=== PATIENT | female | born 1955 | race Caucasian/White ===

== ENCOUNTER → 2018-06-07 | Outpatient (CLI) | payer OTHER, MEDICARE ==
--- NOTE | 2018-06-07 14:15 | Diagnostic Imaging Report ---
EXAM: Cervical spine at 12:50 p.m. INDICATION: Left neck pain TECHNIQUE: AP, lateral and odontoid views were obtained. COMPARISON: There are no prior cervical spine examinations available for comparison. FINDINGS: The lateral view does show straightening of the cervical spine. This may be secondary to muscle spasm and/or positioning. In addition, there is severe degenerative disc and bony disease at C6-7. There is near-complete obliteration of the disc space at this level and there is sclerosis of the opposing endplates of C6 and C7. There is also narrowing of the disc spaces at C4-5 and C5-6 and there is slight retrolisthesis of C5 with respect to C6, as well. There is no fracture or acute bony abnormality evident. However, there does appear to be block vertebra formation at C2-3 and C7-T1. This is an anomaly of segmentation. The AP view again shows the pronounced dextroscoliosis of the upper thoracic spine. In the interval since the prior study, the patient has undergone a surgical procedure and there are now numerous surgical clips in the soft tissues inferior to the thyroid cartilage. There also appears to be mild retropharyngeal edema anterior to C7 and T1. The tracheal air shadow is not compressed or deviated however. The apices are clear. IMPRESSION: 1. There is no evidence for an acute bony abnormality. 2. There is severe degenerative disc and bony disease at C6-7 and to a lesser degree at C4-5 and C5-6. If there is clinical concern regarding spinal stenosis or nerve root encroachment at these levels, MRI would be recommended for further study. 3. 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 Dictated by: Dictated on workstation # [id number]
== END ==
LOC: RAD 12:19
PROVIDERS: ATTEND Family Medicine
DX: M50.121 Cervical disc disorder at C4-C5 level with radiculopathy (principal); M89.9 Disorder of bone, unspecified; M41.84 Other forms of scoliosis, thoracic region; Q76.49 Other congenital malformations of spine, not associated with scoliosis
CPT/HCPCS: 72040

== ENCOUNTER → 2018-09-05 | Outpatient (CLI) | payer MEDICARE, OTHER ==
[~2018-09-05] VITALS: Ht 162.6 cm; Wt 85.7 kg
[~2018-09-05] MED LIST: ASP81CT PO; ATOR40TA70 PO; CEPH500C PO; CIME200T15 PO; CYCL10TA45 PO; EST1.25T PO; FAMO20TA5 PO; HCT25T PO; HCTZ12.5T PO; HYDR-3455 PO; KCL20TCR PO; LEVO100T7 PO; LORA10TA7 PO; LYSI500T13 PO; LYSI600T PO; MULT-974 PO; NABU750T PO; REGADENOSON 0.4 MG/5 ML SYR (LEXISCAN) IV ONE; ROSU5TAB PO; TELM40T PO; TRM50T PO
[2018-09-05] MEDS: CATHETER FLUSH 10 ML SYR IV PRN ×2 (11:11→12:46)
[2018-09-05 12:44] VITALS: BP 154/93
== END ==
LOC: CARD 09:14
PROVIDERS: ATTEND Internal Medicine Cardiovascular Disease
DX: R06.02 Shortness of breath (principal); I10 Essential (primary) hypertension; E78.5 Hyperlipidemia, unspecified; E66.9 Obesity, unspecified; R01.1 Cardiac murmur, unspecified; I35.0 Nonrheumatic aortic (valve) stenosis
CPT/HCPCS: 78452; 93017; 93306

== ENCOUNTER → 2020-09-16 | Outpatient (CLI) | payer MEDICARE ==
[~2020-09-16] MED LIST changes: -REGADENOSON 0.4 MG/5 ML SYR (LEXISCAN) IV ONE
== END ==
LOC: CARD 14:00
PROVIDERS: ATTEND Internal Medicine Cardiovascular Disease
DX: I51.0 Cardiac septal defect, acquired (principal)
CPT/HCPCS: 93306

== ENCOUNTER → 2020-11-18 | Outpatient (CLI) | payer MEDICARE ==
[~2020-11-18] MED LIST changes: +ASCO500C17 PO; +CHOL200025 PO; +CLC600T PO; +CYCL10TA9 PO; +DOXA2TAB2 PO; +ESTR0.5T3 PO; +FAMO20TA3 PO; +FURO-125 PO; +FURO20TA4 PO; +LEVO125C4 PO; +LYSI100014 PO; +MAGN400T39 PO; +MTP100TCR PO; +MULT-1136 PO; +NABU500T8 PO; +POTA-51 PO; +VALS1TAB80 PO; +ZINC50TA11 PO
== END ==
LOC: RAD 09:53
PROVIDERS: ATTEND Family Medicine
DX: Z53.9 Procedure and treatment not carried out, unspecified reason (principal)

== ENCOUNTER → 2020-11-18 | Outpatient (CLI) | payer MEDICARE ==
[~2020-11-18] MED LIST changes: -ASCO500C17 PO; -CHOL200025 PO; -CLC600T PO; -CYCL10TA9 PO; -DOXA2TAB2 PO; -ESTR0.5T3 PO; -FAMO20TA3 PO; -FURO-125 PO; -FURO20TA4 PO; -LEVO125C4 PO; -LYSI100014 PO; -MAGN400T39 PO; -MTP100TCR PO; -MULT-1136 PO; -NABU500T8 PO; -POTA-51 PO; -VALS1TAB80 PO; -ZINC50TA11 PO
--- NOTE | 2020-11-18 11:44 | Diagnostic Imaging Report ---
EXAMINATION: Chest 2 view HISTORY: Cough and congestion COMPARISON: 02/26/2013 FINDINGS: There is dextroscoliosis of the upper cervical spine. Surgical clips are seen near the left apex. There is mild edema. No pleural effusion. No pneumothorax. Heart is upper limits of normal. IMPRESSION: 1. Mild edema Dictated by: Dictated on workstation # [id number]
== END ==
LOC: RAD 09:51
PROVIDERS: ATTEND Family Medicine
DX: R05 Cough (principal); R09.89 Other specified symptoms and signs involving the circulatory and respiratory systems; R60.9 Edema, unspecified
CPT/HCPCS: 71046

== ENCOUNTER 2020-11-25 08:00 | Day surgery (SDC) | payer MEDICARE ==
[2020-11-25] VITALS (11 sets, daily range): BP systolic 112–132; BP diastolic 59–77
[~2020-11-25] VITALS: Ht 160 cm; Wt 92.0 kg
[2020-11-25 07:24] LABS: HEMATOCRIT 43 % (35-52); HEMOGLOBIN 13.7 g/dL (11.5-16.0); MEAN CORPUSCULAR HEMOGLOBIN 30 pg (25-34); MEAN CORPUSCULAR HGB CONC 32 g/dL (32-36); MEAN CORPUSCULAR VOLUME 94 fL (80-99); MEAN PLATELET VOLUME 9.7 fL (9.0-12.2); PLATELET COUNT 173 10^3/uL (130-400)
[2020-11-25 07:44] LABS: ALBUMIN 3.9 GM/DL (3.2-4.5); BILIRUBIN,TOTAL 0.5 MG/DL (0.1-1.0); CALCIUM 9.6 MG/DL (8.5-10.1); CREATININE SERUM 1.05 MG/DL (0.60-1.30); POTASSIUM 3.9 MMOL/L (3.6-5.0); TOTAL PROTEIN 7.5 GM/DL (6.4-8.2)
[2020-11-25 07:45] LABS: PROTHROMBIN TIME PATIENT 13.3 SEC (12.2-14.7)
[~2020-11-25 08:00] MED LIST changes: +HEParin (CATH LAB) 2,000 ML IV ONE; +LIDOCAINE 1% INJ 20 ML 20 ML VIAL ONE; +NS IV 1000 ML 1,000 ML IV SCH; +NS IV 1000 ML 1,000 ML ONE
[2020-11-25] MEDS ORDERED: fentaNYL INJ 100 MCG/2 ML AMP ONE (08:31)
[2020-11-25] MEDS ORDERED: MIDAZOLAM 5 MG/5 ML (VERSED) VIAL ONE (08:32)
[2020-11-25] MEDS ORDERED: POTA-51 PO (08:38)
[2020-11-25] MEDS ORDERED: VALS1TAB80 PO (08:38)
[2020-11-25] MEDS ORDERED: MULT-1136 PO (08:38)
[2020-11-25] MEDS ORDERED: MAGN400T39 PO (08:38)
[2020-11-25] MEDS ORDERED: CHOL200025 PO (08:38)
[2020-11-25] MEDS ORDERED: ASCO500C17 PO (08:38)
[2020-11-25] MEDS ORDERED: ZINC50TA11 PO (08:38)
[2020-11-25] MEDS ORDERED: FAMO20TA3 PO (08:38)
[2020-11-25] MEDS ORDERED: LEVO125C4 PO (08:38)
[2020-11-25] MEDS ORDERED: LYSI100014 PO (08:38)
[2020-11-25] MEDS ORDERED: CLC600T PO (08:38)
[2020-11-25] MEDS ORDERED: MTP100TCR PO (08:38)
[2020-11-25] MEDS ORDERED: LORA10TA7 PO (08:38)
[2020-11-25] MEDS ORDERED: ESTR0.5T3 PO (08:38)
[2020-11-25] MEDS ORDERED: CYCL10TA9 PO (08:38)
[2020-11-25] MEDS ORDERED: NABU500T8 PO (08:38)
[2020-11-25] MEDS ORDERED: DOXA2TAB2 PO (08:40)
--- NOTE | 2020-11-25 09:53 | Cardiac Procedure Note-CS/ASA ---
Pre-Procedure Note Pre-Op Procedure Note H&P Reviewed The H&P was reviewed, patient examined and no changes noted. Date H&P Reviewed: Nov 25, 2020 Time H&P Reviewed: 08:30 Conscious Sedation Pre-Proced Time 08:30 ASA Score 3 For ASA 3 and 4: Consider anesthesia and medical clearance. Also, for patients with a history of failed moderate sedation consider anesthesia. Airway Lungs Heart ASA score ASA 1: a normal healthy patient ASA 2: a patient with a mild systemic disease (mid diabetes, controlled hypertension, obesity ASA 3: a patient with a severe systemic disease that limits activity (angina, COPD, prior Myocardial infarction) ASA 4: a patient with an incapacitating disease that is a constant threat to life (CHF, renal failure) ASA 5: a moribund patient not expected to survive 24 hrs. (ruptured aneurysm) ASA 6: a declared brain- patient whose organs are being harvested. For emergent operations, add the letter E after the classification Mallampati Classification Grade 2 Sedation Plan Analgesia, Amnesia, Plan communicated to team members, Discussed options with patient/fam, Discussed risks with patient/fam The patient is an appropriate candidate to undergo the planned procedure, sedation, and anesthesia. The patient immediately re-assessed prior to indication. SERGIO PABLO MD FACP FAC CCDS Nov 25, 2020 09:53
[2020-11-25] MEDS ORDERED: PATIENT MAY USE OWN MEDS, ALL PO SCH (10:00)
[2020-11-25] MEDS ORDERED: FURO-125 PO (10:00)
[2020-11-25] MEDS ORDERED: NS IV 1000 ML 1,000 ML IV SCH (10:00)
--- NOTE | 2020-11-25 10:01 | Discharge Inst-Cardiology ---
Discharge Inst-Cardiac Discharge Medications New Medications: Furosemide (Lasix) 20 Mg Tablet 20 MG PO DAILY, #30 TAB 4 Refills Continued Medications: Ascorbic Acid (Vitamin C) 500 Mg Capsule 500 MG PO 1200, CAP Calcium Carbonate (Calcium Carbonate) 600 Mg Tablet 1200 MG PO 1200, TAB TAKES 2 (600MG) TABLETS Cholecalciferol (Vitamin D3) (Vitamin D3) 50 Mcg Tablet 50 MCG PO 1200, TAB Cyclobenzaprine HCl (Cyclobenzaprine HCl) 10 Mg Tablet 10 MG PO TID, TAB Doxazosin Mesylate (Doxazosin Mesylate) 2 Mg Tablet 2 MG PO HS, TAB Estradiol (Estrace Tablet) 0.5 Mg Tablet 0.5 MG PO DAILY, TAB Famotidine (Acid Degreasing Solution Reclaimer (FAMOTIDINE)) 20 Mg Tablet 20 MG PO HS, TAB Levothyroxine Sodium (Levothyroxine) 125 Mcg Capsule 125 MCG PO DAILY, CAP Loratadine (Loratadine) 10 Mg Tablet 10 MG PO HS, TAB Lysine (Lysine) 1,000 Mg Tablet 1000 MG PO 1200, TAB Magnesium Oxide (Magnesium) 400 Mg Tablet 400 MG PO 1200, TAB Metoprolol Succinate (Metoprolol Succinate) 100 Mg Tab.er.24h 100 MG PO BID, TAB Multivitamin (Multivitamin) 1 Each Tablet 1 EACH PO 1200, TAB Nabumetone (Nabumetone) 500 Mg Tablet 500 MG PO BID, TAB Potassium Chloride (Potassium Chloride) 20 Meq Tablet.er 20 MEQ PO BID, TAB Valsartan/Hydrochlorothiazide (Valsartan-Hctz 320-25 mg Tab) 1 Each Tablet 1 EACH PO DAILY, TAB Zinc Gluconate (Zinc) 50 Mg Tablet 50 MG PO 1200, TAB SERGIO PABLO MD FACP FAC CCDS Nov 25, 2020 10:01
--- NOTE | 2020-11-25 10:05 | Discharge Inst-Post CATH ---
Discharge Inst-CATH/EP Post Cardiac Cath/EP D/C Inst Follow Up/Plan F/u with Dr Parikh next week ACTIVITY * Go Home directly and rest. * Limit activity of the leg (or wrist if it was used) for 7 days including aerobics, swimming, jogging, bicycling, etc. * Restrict stair-climbing for 7 days if possible, if not, climb up with your no n-cath leg, then bring together on the same step. * Avoid lifting, pushing, pulling or excessive movement of the affected ext remity for 7 days. * Customary sexual activity may be resumed after 2 days-use caution not to use a position that strains or causes pain to the affected extremity. * No driving for 24 hours. * NO SMOKING. * Avoid straining for bowel movements for 7 days. * Gentle walking on level ground is allowed. * Returning to work will depend on the type of procedure and the results. Your doctor will discuss this with you. CALL YOUR DOCTOR FOR ANY OF THE FOLLOWING: *If bleeding from the puncture site occurs- Apply gentle pressure to site with clean cloth and call your doctor or EMS. * If a knot or lump forms under the skin, increases in size, or causes pain. * If bruising appears to be worsening or moving further down your leg instead of disappearing. * Temperature above 101 F. CARE OF YOUR GROIN INCISION; * Bruising or purple discoloration of the skin near the puncture site is common. * You may shower only, no bathtub bathing for 5 days. Be careful to avoid slipping as your leg may feel stiff. * If a closure device was used on your femoral artery, please see the attached guide regarding care of the device and your leg. * Leave dressing on FOR 24 hours. CARE OF YOUR WRIST INCISION; * Bruising or purple discoloration of the skin near the puncture site is common. * You may shower. * DO NOT submerge wrist. * Leave dressing on FOR 24 hours. SER[facility]IO PARIKH MD [facility] CCDS Nov 25, 2020 10:05
--- NOTE | 2020-11-25 10:59 | CARDIAC CATHETERIZATION ---
DATE OF SERVICE: 11/25/2020 CARDIAC CATHETERIZATION REPORT The patient is a 65-year-old lady, who has been experiencing shortness of breath and ankle swelling and a recent noninvasive workup at [facility] indicated normal left ventricular ejection fraction, but evidence of atrial septal defect with both right to left and left to right shunting with bubble study. She was noted to have mild aortic regurgitation and moderate aortic stenosis and moderate pulmonary hypertension. Cardiac catheterization was carried out today after having obtained an informed consent. DESCRIPTION OF PROCEDURE: She was brought to the cardiac catheterization laboratory in a fasting state. Right groin was prepared and draped in the usual sterile fashion. Lidocaine 1% was used for local anesthesia. Modified Seldinger technique was used to advance a 5-Chinese sheath into the right femoral artery and a 7-Chinese sheath in the right femoral vein. We used a 7-Chinese [place]-Esperanza catheter to carry out right heart catheterization and to measure oxygen saturation in various right heart chambers and to measure cardiac output by thermodilution. The pigtail catheter was then removed. We used a 5-Chinese pigtail catheter to carry out left heart catheterization, left ventricular angiography. There was a considerable aortic tortuosity and we also performed aortic arch angiography with the pigtail catheter. We used a 5-Chinese JL4 catheter for left coronary angiography and a 5-Chinese JR4 catheter was used for right coronary angiography. Angiography of the right femoral artery was carried out through the sheath and Mynx was used to achieve arterial hemostasis and manual pressure to achieve venous hemostasis following sheath removal. HEMODYNAMICS: Pulmonary artery pressure was 79/32 with a mean of 42 mmHg. Pulmonary wedge pressure was 24 mmHg. Right ventricular pressure was 83/21. Left ventricular systolic pressure was 128 and left ventricular end-diastolic pressure was 21 mmHg. The aortic pressure was 109/69 with a mean of 88 mmHg. Pressure gradient on pullback across the aortic valve was approximately 20 mmHg. Cardiac output by thermodilution was 3.77 with a cardiac index of 1.94. Pulmonary vascular resistance was 4.52 Wood units, Qp was 5.09, Qs was 3.72. Shunt fraction was approximately 1.9. CORONARY ANGIOGRAPHY: Left main coronary artery is free of significant disease. Left anterior descending and left circumflex arteries are free of significant disease. Right coronary artery is nondominant and free of significant disease. LEFT VENTRICULAR ANGIOGRAPHY: Left ventricular angiography was carried out in the STALLINGS projection only. Global left ventricular systolic function normal. Left ventricular ejection fraction approximately 60%. AORTIC ARCH ANGIOGRAPHY: Aortic arch angiography indicates a tortuous aortic arch and tortuous descending thoracic aorta. The origins of the neck arteries are identified. The left subclavian artery appears to have moderate proximal disease. CONCLUSIONS: 1. Atrial septal defect with primarily left to right shunt with shunt fraction of approximately 1.9. 2. Normal coronary arteries. 3. Normal left ventricular systolic function with an ejection fraction approximately 60%. 4. 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 DISCUSSION AND RECOMMENDATIONS: We discussed the findings with the patient and her . We also discuss this with the cardiovascular surgical service. Job ID: [id number] DocumentID: [id number] Dictated Date: 11/25/2020 10:42:52 Manual Arts Therapist Date: 11/25/2020 10:58:52 Dictated By: SERGIO PABLO MD, MA, FACP, FACC,
== END 2020-11-25 13:15 | disposition home or self-care (01) ==
LOC: CATH 08:00 → SDC 09:47 → CATH 13:15
PROVIDERS: ATTEND Internal Medicine Cardiovascular Disease
DX: Q21.1 Atrial septal defect (principal); E87.6 Hypokalemia; M19.90 Unspecified osteoarthritis, unspecified site; I65.29 Occlusion and stenosis of unspecified carotid artery; I35.0 Nonrheumatic aortic (valve) stenosis; E78.2 Mixed hyperlipidemia; I15.8 Other secondary hypertension; E66.9 Obesity, unspecified; Z68.35 Body mass index [BMI] 35.0-35.9, adult; Z79.899 Other long term (current) drug therapy
CPT/HCPCS: 36221; 80053; 80061; 85027; 85610; 85730; 87081; 93460; C1760; C1894 ×2; 36415

== ENCOUNTER → 2020-11-28 | Outpatient (CLI) | payer MEDICARE ==
[~2020-11-28] MED LIST changes: +ASCO500C17 PO; +CHOL200025 PO; +CLC600T PO; +CYCL10TA9 PO; +DOXA2TAB2 PO; +ESTR0.5T3 PO; +FAMO20TA3 PO; +FURO-125 PO; +FURO20TA4 PO; -HEParin (CATH LAB) 2,000 ML IV ONE; +LEVO125C4 PO; -LIDOCAINE 1% INJ 20 ML 20 ML VIAL ONE; +LYSI100014 PO; +MAGN400T39 PO; +MTP100TCR PO; +MULT-1136 PO; +NABU500T8 PO; -NS IV 1000 ML 1,000 ML IV SCH; -NS IV 1000 ML 1,000 ML ONE; +POTA-51 PO; +VALS1TAB80 PO; +ZINC50TA11 PO; +proPOfol 200 MG/20 ML (DIPRIVAN) VIAL IV ONE
== END ==
LOC: LABNPT 06:06
PROVIDERS: ATTEND Internal Medicine Cardiovascular Disease
DX: Z20.822 Contact with and (suspected) exposure to COVID-19 (principal)
CPT/HCPCS: 87635

== ENCOUNTER 2020-12-02 09:00 | Day surgery (SDC) | payer MEDICARE ==
[2020-12-02] VITALS (11 sets, daily range): BP systolic 101–133; BP diastolic 51–70
[~2020-12-02] VITALS: Ht 160 cm; Wt 92.1 kg
[2020-12-02 07:40] LABS: HEMATOCRIT 40 % (35-52); HEMOGLOBIN 12.9 g/dL (11.5-16.0); MEAN CORPUSCULAR HEMOGLOBIN 30 pg (25-34); MEAN CORPUSCULAR HGB CONC 32 g/dL (32-36); MEAN CORPUSCULAR VOLUME 94 fL (80-99); MEAN PLATELET VOLUME 10.4 fL (9.0-12.2); PLATELET COUNT 169 10^3/uL (130-400); WHITE BLOOD COUNT 5.4 10^3/uL (4.3-11.0)
[2020-12-02 08:01] LABS: PROTHROMBIN TIME PATIENT 13.7 SEC (12.2-14.7)
[2020-12-02 08:02] LABS: ALBUMIN 3.8 GM/DL (3.2-4.5); BILIRUBIN,TOTAL 0.5 MG/DL (0.1-1.0); CALCIUM 9.5 MG/DL (8.5-10.1); POTASSIUM 4.2 MMOL/L (3.6-5.0); TOTAL PROTEIN 7.3 GM/DL (6.4-8.2)
[~2020-12-02 09:00] MED LIST changes: +LIDOCAINE 2% VISCOUS 15 ML UDC PO ONE; +MIDAZOLAM 5 MG/5 ML (VERSED) VIAL IV ONE; +NS IV 1000 ML 1,000 ML IV ONE; +NS IV 1000 ML 1,000 ML ONE; +fentaNYL INJ 100 MCG/2 ML AMP IV ONE; -proPOfol 200 MG/20 ML (DIPRIVAN) VIAL IV ONE
--- NOTE | 2020-12-02 09:48 | Cardiac Procedure Note-CS/ASA ---
Pre-Procedure Note Pre-Op Procedure Note H&P Reviewed The H&P was reviewed, patient examined and no changes noted. Date H&P Reviewed: Dec 02, 2020 Time H&P Reviewed: 09:00 Conscious Sedation Pre-Proced Time 09:00 ASA Score 3 For ASA 3 and 4: Consider anesthesia and medical clearance. Also, for patients with a history of failed moderate sedation consider anesthesia. Airway Lungs Heart ASA score ASA 1: a normal healthy patient ASA 2: a patient with a mild systemic disease (mid diabetes, controlled hypertension, obesity ASA 3: a patient with a severe systemic disease that limits activity (angina, COPD, prior Myocardial infarction) ASA 4: a patient with an incapacitating disease that is a constant threat to life (CHF, renal failure) ASA 5: a moribund patient not expected to survive 24 hrs. (ruptured aneurysm) ASA 6: a declared brain- patient whose organs are being harvested. For emergent operations, add the letter E after the classification Mallampati Classification Grade 2 Sedation Plan Analgesia, Amnesia, Plan communicated to team members, Discussed options with patient/fam, Discussed risks with patient/fam The patient is an appropriate candidate to undergo the planned procedure, sedation, and anesthesia. The patient immediately re-assessed prior to indication. SERGIO PABLO MD FACP FAC CCDS Dec 02, 2020 09:48
--- NOTE | 2020-12-05 10:51 | Anesthesia-General Post-Op ---
MAC Patient Condition Mental Status/LOC: Same as Preop Cardiovascular: Satisfactory Nausea/Vomiting: Absent Respiratory: Satisfactory Pain: Controlled Complications: Absent Post Op Complications Complications None Follow Up Care/Instructions Patient Instructions None needed. Anesthesiology Discharge Order Discharge Order Patient is doing well, no complaints, stable vital signs, no apparent adverse anesthesia problems. No complications reported per nursing. CRISTINA RAMIREZ CRNA Dec 05, 2020 10:51
== END 2020-12-02 10:49 | disposition home or self-care (01) ==
LOC: CATH 09:00
PROVIDERS: ATTEND Internal Medicine Cardiovascular Disease
DX: I35.0 Nonrheumatic aortic (valve) stenosis (principal); Q21.1 Atrial septal defect; I11.9 Hypertensive heart disease without heart failure; I25.10 Atherosclerotic heart disease of native coronary artery without angina pectoris; E66.9 Obesity, unspecified; K21.9 Gastro-esophageal reflux disease without esophagitis; E78.5 Hyperlipidemia, unspecified; M06.9 Rheumatoid arthritis, unspecified; M79.89 Other specified soft tissue disorders; I15.8 Other secondary hypertension; Z68.36 Body mass index [BMI] 36.0-36.9, adult; Z79.899 Other long term (current) drug therapy; Z98.890 Other specified postprocedural states; Z90.89 Acquired absence of other organs; Z96.652 Presence of left artificial knee joint
CPT/HCPCS: 36415; 80053; 80061; 85027; 85610; 85730; 87081; 93312

== ENCOUNTER → 2021-05-01 | Outpatient (CLI) | payer MEDICARE ==
[~2021-05-01] MED LIST changes: +CYCL10TA25 PO; -CYCL10TA9 PO; -LIDOCAINE 2% VISCOUS 15 ML UDC PO ONE; -MIDAZOLAM 5 MG/5 ML (VERSED) VIAL IV ONE; -NS IV 1000 ML 1,000 ML IV ONE; -NS IV 1000 ML 1,000 ML ONE; -fentaNYL INJ 100 MCG/2 ML AMP IV ONE
== END ==
LOC: LABNPT 06:47
PROVIDERS: ATTEND Family Medicine
DX: Z20.822 Contact with and (suspected) exposure to COVID-19 (principal)
CPT/HCPCS: 87635

== ENCOUNTER 2021-07-21 09:00 | Day surgery (SDC) | payer MEDICARE ==
[~2021-07-21] VITALS: Ht 160 cm; Wt 90.3 kg
[2021-07-21] VITALS (11 sets, daily range): BP systolic 102–124; BP diastolic 48–88
[2021-07-21 07:26] LABS: HEMATOCRIT 39 % (35-52); MEAN CORPUSCULAR HEMOGLOBIN 31 pg (25-34); MEAN CORPUSCULAR HGB CONC 33 g/dL (32-36); MEAN CORPUSCULAR VOLUME 93 fL (80-99); MEAN PLATELET VOLUME 9.3 fL (9.0-12.2); PLATELET COUNT 170 10^3/uL (130-400)
[2021-07-21 07:35] LABS: POTASSIUM 4.6 MMOL/L (3.6-5.0)
[2021-07-21 07:36] LABS: CALCIUM 9.5 MG/DL (8.5-10.1)
[2021-07-21 07:38] LABS: TOTAL PROTEIN 7.2 GM/DL (6.4-8.2)
[2021-07-21 07:39] LABS: BILIRUBIN,TOTAL 0.5 MG/DL (0.1-1.0)
[2021-07-21 07:41] LABS: CREATININE SERUM 1.24 MG/DL (0.60-1.30); INR 0.9 (0.8-1.4)
[~2021-07-21 09:00] MED LIST changes: +ACET325T38 PO; +CALC600T91 PO; +CHOL200014 PO; +HEParin (CATH LAB) 1,000 ML IV ONE; +LIDOCAINE 1% INJ 50 ML (XYLOCAINE) VIAL ONE; +LYSI500T37 PO; +MIDAZOLAM 5 MG/5 ML (VERSED) VIAL ONE; +NS IV 1000 ML 1,000 ML IV SCH; +NS IV 1000 ML 1,000 ML ONE; +RT-ALBUINH IH; +SPIR25TA PO; +TORS20TA3 PO; +ZINC220T3 PO; +fentaNYL INJ 100 MCG/2 ML AMP ONE
--- NOTE | 2021-07-21 09:02 | Cardiac Procedure Note-CS/ASA ---
Pre-Procedure Note Pre-Op Procedure Note H&P Reviewed The H&P was reviewed, patient examined and no changes noted. Date H&P Reviewed: Jul 21, 2021 Time H&P Reviewed: 08:30 Conscious Sedation Pre-Proced Time 08:30 ASA Score 4 For ASA 3 and 4: Consider anesthesia and medical clearance. Also, for patients with a history of failed moderate sedation consider anesthesia. Airway Lungs Heart ASA score ASA 1: a normal healthy patient ASA 2: a patient with a mild systemic disease (mid diabetes, controlled hypertension, obesity ASA 3: a patient with a severe systemic disease that limits activity (angina, COPD, prior Myocardial infarction) ASA 4: a patient with an incapacitating disease that is a constant threat to life (CHF, renal failure) ASA 5: a moribund patient not expected to survive 24 hrs. (ruptured aneurysm) ASA 6: a declared brain- patient whose organs are being harvested. For emergent operations, add the letter E after the classification Mallampati Classification Grade 2 Sedation Plan Analgesia, Amnesia, Plan communicated to team members, Discussed options with patient/fam, Discussed risks with patient/fam The patient is an appropriate candidate to undergo the planned procedure, sedation, and anesthesia. The patient immediately re-assessed prior to indication. SERGIO PABLO MD FACP FAC CCDS Jul 21, 2021 09:02
--- NOTE | 2021-07-21 09:20 | Discharge Inst-Post CATH ---
Discharge Inst-CATH/EP Post Cardiac Cath/EP D/C Inst Follow Up/Plan F/u with Dr Parikh next week ACTIVITY * Go Home directly and rest. * Limit activity of the leg (or wrist if it was used) for 7 days including aerobics, swimming, jogging, bicycling, etc. * Restrict stair-climbing for 7 days if possible, if not, climb up with your no n-cath leg, then bring together on the same step. * Avoid lifting, pushing, pulling or excessive movement of the affected ext remity for 7 days. * Customary sexual activity may be resumed after 2 days-use caution not to use a position that strains or causes pain to the affected extremity. * No driving for 24 hours. * NO SMOKING. * Avoid straining for bowel movements for 7 days. * Gentle walking on level ground is allowed. * Returning to work will depend on the type of procedure and the results. Your doctor will discuss this with you. CALL YOUR DOCTOR FOR ANY OF THE FOLLOWING: *If bleeding from the puncture site occurs- Apply gentle pressure to site with clean cloth and call your doctor or EMS. * If a knot or lump forms under the skin, increases in size, or causes pain. * If bruising appears to be worsening or moving further down your leg instead of disappearing. * Temperature above 101 F. CARE OF YOUR GROIN INCISION; * Bruising or purple discoloration of the skin near the puncture site is common. * You may shower only, no bathtub bathing for 5 days. Be careful to avoid slipping as your leg may feel stiff. * If a closure device was used on your femoral artery, please see the attached guide regarding care of the device and your leg. * Leave dressing on FOR 24 hours. CARE OF YOUR WRIST INCISION; * Bruising or purple discoloration of the skin near the puncture site is common. * You may shower. * DO NOT submerge wrist. * Leave dressing on FOR 24 hours. SERGIO PARIKH MD [facility] CCDS Jul 21, 2021 09:20
--- NOTE | 2021-07-21 09:20 | Discharge Inst-Cardiology ---
Discharge Inst-Cardiac Discharge Medications Continued Medications: Acetaminophen (Tylenol) 325 Mg Tablet 650 MG PO Q6H PRN for PAIN-MILD (1-4), TAB Albuterol Sulfate (Proair Hfa) 1 Puff Puff 2 PUFF IH Q4H PRN for SHORTNESS OF BREATH, EA Calcium Carbonate (Calcium) 600 Mg Tablet 600 MG PO 1200, TAB Cholecalciferol (Vitamin D3) (Vitamin D3) 50 Mcg Tablet 50 MCG PO 1200, TAB Cyclobenzaprine HCl (Cyclobenzaprine HCl) 10 Mg Tablet 10 MG PO TID, TAB Doxazosin Mesylate (Doxazosin Mesylate) 2 Mg Tablet 2 MG PO HS, TAB Estradiol (Estrace Tablet) 0.5 Mg Tablet 0.5 MG PO DAILY, TAB Famotidine (Acid Tower Loader Operator (FAMOTIDINE)) 20 Mg Tablet 20 MG PO HS, TAB Levothyroxine Sodium (Levothyroxine Sodium) 100 Mcg Tablet 100 MCG PO DAILY, TAB Loratadine (Loratadine) 10 Mg Tablet 10 MG PO HS, TAB Lysine HCl (l-Lysine) 500 Mg Tablet 500 MG PO 1200, TAB Magnesium Oxide (Magnesium) 400 Mg Tablet 400 MG PO 1200, TAB Metoprolol Succinate (Metoprolol Succinate) 100 Mg Tab.er.24h 100 MG PO BID, TAB Multivitamin (Multivitamin) 1 Each Tablet 1 EACH PO 1200, TAB Potassium Chloride (Potassium Chloride) 20 Meq Tablet.er 20 MEQ PO BID, TAB Spironolactone (Aldactone) 25 Mg Tablet 25 MG PO DAILY, TAB Torsemide (Torsemide) 20 Mg Tablet 40 MG PO DAILY, TAB TAKES 2 (20MG) TABLETS Zinc Sulfate (Zinc) 50 Mg Tablet 50 MG PO 1200, TAB SERGIO PABLO MD FACP FAC CCDS Jul 21, 2021 09:20
[2021-07-21] MEDS ORDERED: NS IV 1000 ML 1,000 ML IV SCH (09:30)
[2021-07-21] MEDS ORDERED: PATIENT MAY USE OWN MEDS, ALL PO SCH (09:30)
--- NOTE | 2021-07-21 10:07 | CARDIAC CATHETERIZATION ---
DATE OF SERVICE: 07/21/2021 RIGHT HEART CATHETERIZATION REPORT The patient is a 66-year-old lady with a history of secundum atrial septal defect with moderate left to right shunting. She had been referred for percutaneous closure. Right heart catheterization at [facility] on 05/14/2021 had shown PA pressure of 80/38 with a mean of 52 mmHg and a pulmonary wedge pressure of 38 mmHg. She was not found to be a suitable candidate for percutaneous closure at that time. She has since been treated with diuretics. Clinically, her symptoms have improved. Right heart catheterization was carried out today to reevaluate her right heart pressures. DESCRIPTION OF PROCEDURE: She was brought to the cardiac catheterization laboratory in a fasting state. The right groin was prepared and draped in the usual sterile fashion. Lidocaine 1% was used for local anesthesia. Modified Seldinger technique was used to advance a 7-Italian sheath into the right femoral vein. We used a 7-Italian [place]-Esperanza catheter to carry out right heart catheterization, the [place]-Esperanza catheter was then removed. Manual pressure was used to achieve hemostasis following sheath removal. She tolerated the procedure well. HEMODYNAMICS: Pulmonary arterial pressure is 53/24 with a mean of 35 mmHg. Mean pulmonary capillary wedge pressure is 23 mmHg. Right ventricular pressure is 55/9 with end-diastolic pressure 16 mmHg. Mean right atrial pressure is 14 mmHg. Cardiac output by thermodilution is 3.37 with an index of 1.75. DISCUSSION AND RECOMMENDATIONS: Compared to right heart catheterization carried out at [facility] in 04/2021, right heart pressures seemS to have improved, but not normalized. We will continue her diuretic regimen. We will discuss the case with her physicians at [facility]. Job ID: [id number] DocumentID: [id number] Dictated Date: 07/21/2021 09:08:08 Spindle Setter Date: 07/21/2021 10:06:41 Dictated By: SERGIO PABLO MD, MA, FACP, FACC, MTDD
== END 2021-07-21 11:40 | disposition home or self-care (01) ==
LOC: CATH 09:00 → SDC 09:18 → CATH 11:40
PROVIDERS: ATTEND Internal Medicine Cardiovascular Disease
DX: I35.0 Nonrheumatic aortic (valve) stenosis (principal); Q21.1 Atrial septal defect; I65.29 Occlusion and stenosis of unspecified carotid artery; I15.8 Other secondary hypertension; I50.31 Acute diastolic (congestive) heart failure; I11.0 Hypertensive heart disease with heart failure; E78.5 Hyperlipidemia, unspecified; E66.9 Obesity, unspecified; E78.2 Mixed hyperlipidemia; R94.39 Abnormal result of other cardiovascular function study; M06.9 Rheumatoid arthritis, unspecified; R60.0 Localized edema; Z90.89 Acquired absence of other organs; Z96.652 Presence of left artificial knee joint
CPT/HCPCS: 80053; 80061; 85027; 85610; 85730; 87081; 93005; 93451; C1769; C1894; 36415

== ENCOUNTER → 2021-08-11 | Outpatient (CLI) | payer MEDICARE ==
[~2021-08-11] MED LIST changes: -HEParin (CATH LAB) 1,000 ML IV ONE; -LIDOCAINE 1% INJ 50 ML (XYLOCAINE) VIAL ONE; -MIDAZOLAM 5 MG/5 ML (VERSED) VIAL ONE; -NS IV 1000 ML 1,000 ML IV SCH; -NS IV 1000 ML 1,000 ML ONE; -fentaNYL INJ 100 MCG/2 ML AMP ONE
[2021-08-11 17:44] LABS: POTASSIUM 4.4 MMOL/L (3.6-5.0)
[2021-08-11 17:45] LABS: CALCIUM 9.5 MG/DL (8.5-10.1)
[2021-08-11 17:49] LABS: CREATININE SERUM 1.45 MG/DL (0.60-1.30)
[2021-08-11 17:52] LABS: MAGNESIUM 2.5 MG/DL (1.6-2.4)
== END ==
LOC: LABNPT 16:34
PROVIDERS: ATTEND Internal Medicine Cardiovascular Disease
DX: I50.31 Acute diastolic (congestive) heart failure (principal)
CPT/HCPCS: 80048; 83735

== ENCOUNTER → 2021-08-18 | Outpatient (CLI) | payer MEDICARE ==
[~2021-08-18] MED LIST changes: -CHOL200014 PO; +CHOL200052 PO
== END ==
LOC: LABNPT 10:10
PROVIDERS: ATTEND Internal Medicine Cardiovascular Disease
DX: I50.31 Acute diastolic (congestive) heart failure (principal)
CPT/HCPCS: 83735

== ENCOUNTER → 2021-11-05 | Outpatient (CLI) | payer MEDICARE ==
--- NOTE | 2021-11-05 13:45 | Diagnostic Imaging Report ---
PROCEDURE: US Renal Bilateral. TECHNIQUE: Multiple real-time grayscale images were obtained over the kidneys in various projections bilaterally. INDICATION: Acute kidney injury. FINDINGS: Right kidney measures 9.1 x 4.9 x 4.8 cm, and the left kidney measures 8.1 x 4.5 x 4.5 cm. Cortical thickness and echogenicity are normal. No calculi are seen. No significant hydronephrosis is identified. Urinary bladder demonstrates bilateral ureteral jets. IMPRESSION: Unremarkable renal ultrasound. Dictated by: Dictated on workstation # [id number]
== END ==
LOC: RAD 12:30
PROVIDERS: ATTEND Family Medicine
DX: N17.9 Acute kidney failure, unspecified (principal)
CPT/HCPCS: 76770

== ENCOUNTER → 2022-01-11 | Outpatient (CLI) | payer MEDICARE ==
[2022-01-11 09:50] LABS: CALCIUM 9.8 MG/DL (8.5-10.1); CREATININE SERUM 1.84 MG/DL (0.60-1.30); POTASSIUM 4.5 MMOL/L (3.6-5.0)
== END ==
LOC: LAB 09:18
DX: Q24.9 Congenital malformation of heart, unspecified (principal); I10 Essential (primary) hypertension
CPT/HCPCS: 36415; 80048